=== PATIENT | female | born 1935 | race African-American/Black ===

== ENCOUNTER 2020-05-21 18:43 | Inpatient (IN) | payer OTHER ==
[~2020-05-21] VITALS: Ht 152.4 cm; Wt 86.2 kg
[2020-05-21] MEDS ORDERED: ONDANSETRON HCL 4MG/2ML INJ IV NR (23:30)
[2020-05-21] MEDS ORDERED: PANTOPRAZOLE SODIUM 40 MG/VIAL IV NR (23:30)
[2020-05-21] MEDS ORDERED: SODIUM CHLORIDE 0.9% 500 ML IV NR (23:30)
[2020-05-22 00:02] LABS: HEMATOCRIT. 36.1 % (36.0-48.0); HEMOGLOBIN. 11.8 g/dL (12.0-16.0); MEAN CORPUSCULAR HEMOGLOBIN 26.4 pg (28.0-32.0); MEAN CORPUSCULAR VOLUME 80.6 fL (81.0-99.0); MEAN PLATELET VOLUME 9.2 fl (7.4-10.4); PLATELET 246 x1000/uL (130-400); RED BLOOD CELL COUNT 4.48 mill/uL (4.2-5.4); RED CELL DISTRIBUTION WIDTH 15.9 % (11.6-14.6)
[2020-05-22 00:06] LABS: CHLORIDE 98 mEq/L (98-107)
[2020-05-22 00:07] LABS: INR 1.2; PROTHROMBIN TIME 12.5 sec (9.6-11.0)
[2020-05-22] MEDS ORDERED: ASPIRIN 81MG TABLET PO NR (00:30)
[2020-05-22] MEDS ORDERED: NITROGLYCERIN OINT 1GM/INCH UDPKT TD NR (00:30)
[2020-05-22] MEDS: FUROSEMIDE 20MG/2ML VIAL IVP SCH (01:16)
[2020-05-22 04:37] LABS: CLARITY URINE CLOUDY (CLEAR); COLOR URINE YELLOW (YELLOW); KETONES URINE NEGATIVE (NEGATIVE); LEUKOCYTE ESTERASE URINE 3+ (NEGATIVE); NITRITE URINE POSITIVE (NEGATIVE); OCCULT BLOOD URINE 2+ (NEGATIVE); PROTEIN URINE 1+ (NEGATIVE); SPECIFIC GRAVITY URINE 1.013 (1.005-1.030)
[2020-05-22 04:49] LABS: PLATELET ESTIMATE NORMAL
[2020-05-22] MEDS ORDERED: ONDANSETRON HCL 4MG/2ML INJ IV PRN (08:00)
[2020-05-22] MEDS ORDERED: ACETAMINOPHEN 325MG TABLET PO PRN (08:00)
[2020-05-22] MEDS ORDERED: AZITHROMYCIN 500 MG TABLET PO SCH (09:00)
[2020-05-22] MEDS: AMLODIPINE 5MG TABLET PO SCH (09:00)
[2020-05-22] MEDS: CEFTRIAXONE 1 G PREMIX 50 ML IV SCH (09:22)
[2020-05-23 03:59] LABS: HEMATOCRIT. 36.4 % (36.0-48.0); HEMOGLOBIN. 11.8 g/dL (12.0-16.0); MEAN CORPUSCULAR HEMOGLOBIN 26.9 pg (28.0-32.0); MEAN CORPUSCULAR VOLUME 82.7 fL (81.0-99.0); MEAN PLATELET VOLUME 8.8 fl (7.4-10.4); PLATELET 217 x1000/uL (130-400); RED BLOOD CELL COUNT 4.41 mill/uL (4.2-5.4); RED CELL DISTRIBUTION WIDTH 15.6 % (11.6-14.6)
[2020-05-23 04:07] LABS: CHLORIDE 102 mEq/L (98-107)
[2020-05-23 07:01] LABS: PLATELET ESTIMATE NORMAL
[2020-05-23] MEDS: AMLODIPINE 5MG TABLET PO SCH (09:54)
[2020-05-23] MEDS: CEFTRIAXONE 1 G PREMIX 50 ML IV SCH (09:54)
[2020-05-23] MEDS: FUROSEMIDE 20MG/2ML VIAL IVP SCH (09:54)
[2020-05-23] MEDS ORDERED: LEVO500T2 MT (10:25)
[2020-05-23] MEDS: AZITHROMYCIN 250 MG TABLET PO SCH (11:55)
[2020-05-23] MEDS ORDERED: SODIUM BICARBONATE 4% (2.4MEQ) 5ML VIAL IV ONE (14:42)
[2020-05-23] MEDS ORDERED: LIDOCAINE HCL 1% 20ML VIAL (Pyxis) INJ ONE (14:42)
[2020-05-23] MEDS: SODIUM CHLORIDE 0.9% 1,000 ML IV SCH ×2 (15:30→19:18)
[2020-05-24 08:36] VITALS: BP 93/50
[2020-05-24] MEDS ORDERED: CEFTRIAXONE 1,000 MG in DEXTROSE 5% WATER 50 ML IV SCH (09:00)
[2020-05-24] MEDS: AZITHROMYCIN 250 MG TABLET PO SCH (10:19)
[2020-05-24] MEDS: FUROSEMIDE 20MG/2ML VIAL IVP SCH (10:19)
[2020-05-24] MEDS: AMLODIPINE 5MG TABLET PO SCH (10:20)
[2020-05-24] MEDS: CEFTRIAXONE 1,000 MG in DEXTROSE 5% WATER 50 ML IV SCH (10:23)
[2020-05-24 12:00] VITALS: BP 127/60
[2020-05-24 16:00] VITALS: BP 110/81
[2020-05-24 16:48] VITALS: BP 127/60
[2020-05-24] MEDS ORDERED: LOSA1TAB40 MT (17:25)
[2020-05-24] MEDS ORDERED: LOPHC2 MT (17:25)
[2020-05-25] VITALS: BP 137/50
[2020-05-25 04:00] VITALS: BP 125/70
[2020-05-25] MEDS: SODIUM CHLORIDE 0.9% 1,000 ML IV SCH ×2 (06:59→20:43)
[2020-05-25 08:00] VITALS: BP 130/61
[2020-05-25] MEDS: AZITHROMYCIN 250 MG TABLET PO SCH (08:34)
[2020-05-25] MEDS: AMLODIPINE 5MG TABLET PO SCH (08:34)
[2020-05-25] MEDS: FUROSEMIDE 20MG/2ML VIAL IVP SCH (08:34)
[2020-05-25] MEDS: CEFTRIAXONE 1,000 MG in DEXTROSE 5% WATER 50 ML IV SCH (11:29)
[2020-05-25 12:00] VITALS: BP 139/49
[2020-05-25 16:00] VITALS: BP 125/70
[2020-05-25 20:00] VITALS: BP 143/84
[2020-05-26] VITALS: BP 138/80
[2020-05-26 04:00] VITALS: BP 131/89
[2020-05-26 08:00] VITALS: BP 119/72
[2020-05-26] MEDS: FUROSEMIDE 20MG/2ML VIAL IVP SCH (09:47)
[2020-05-26] MEDS: AZITHROMYCIN 250 MG TABLET PO SCH (09:48)
[2020-05-26] MEDS: SODIUM CHLORIDE 0.9% 1,000 ML IV SCH ×2 (09:48→21:10)
[2020-05-26] MEDS: AMLODIPINE 5MG TABLET PO SCH (09:48)
[2020-05-26] MEDS: CEFTRIAXONE 1,000 MG in DEXTROSE 5% WATER 50 ML IV SCH (10:37)
[2020-05-26 12:00] VITALS: BP 150/79
[2020-05-26 16:00] VITALS: BP 138/75
[2020-05-26 20:00] VITALS: BP 154/82
[2020-05-27 00:30] VITALS: BP 134/68
[2020-05-27 04:30] VITALS: BP 154/78
[2020-05-27 08:00] VITALS: BP 171/87
[2020-05-27] MEDS: AMLODIPINE 5MG TABLET PO SCH (10:01)
[2020-05-27] MEDS: FUROSEMIDE 20MG/2ML VIAL IVP SCH (10:02)
[2020-05-27 12:00] VITALS: BP 167/99
[2020-05-27] MEDS: SODIUM CHLORIDE 0.9% 1,000 ML IV SCH (12:38)
[2020-05-27] MEDS ORDERED: CLONIDINE 0.1MG TABLET PO PRN (14:15)
[2020-05-27 15:28] VITALS: BP 167/99
[2020-05-27 16:00] VITALS: BP 130/76
== END 2020-05-27 17:55 | DRG 177 ==
LOC: ER 18:43 → MICUSO 05-22 02:07 → 8WST 05-24 07:33
PROVIDERS: ADMIT Internal Medicine; ATTEND Internal Medicine
PROC: 05HY33Z Insertion of Infusion Device into Upper Vein, Percutaneous Approach (ICD-10-PCS; principal; 2020-05-23)
PROC: B54MZZA Ultrasonography of Right Upper Extremity Veins, Guidance (ICD-10-PCS; 2020-05-23)
DX: U07.1 COVID-19 (principal); E43 Unspecified severe protein-calorie malnutrition; J12.89 Other viral pneumonia; N39.0 Urinary tract infection, site not specified; E87.1 Hypo-osmolality and hyponatremia; E66.9 Obesity, unspecified; I10 Essential (primary) hypertension; R77.8 Other specified abnormalities of plasma proteins; Z68.27 Body mass index [BMI] 27.0-27.9, adult; Z79.2 Long term (current) use of antibiotics; Z79.899 Other long term (current) drug therapy; I69.30 Unspecified sequelae of cerebral infarction
CPT/HCPCS: 36415; 71045; 74176; 76937; 80048; 80053; 81003; 83880; 84484; 85025; 86850; 86900; 87077; 87186; 87426; 96365; 96375; 99285; C1725; C9113; J0696; J1940; J2405; J3490; J7030; J7060